=== PATIENT | female | born 1940 | race Caucasian/White ===

== ENCOUNTER 2019-10-24 04:02 | Emergency (ER) | payer OTHER ==
--- OUTSIDE RECORDS SUMMARY | 2019-10-24 04:04 | XMS REPORT | Clinical Summary ---
:1940 Author Organization [facility] Address [address] [place] [address] Care Team Providers Name Role Phone Pcp Primary Care Provider Unavailable Allergies Not on File Medications Not on file Active Problems Not on file Social History Tobacco Use Types Packs/Day Years Used Date Never Assessed Sex Assigned at Date Recorded Not on file Job Start Date Occupation Industry Not on file Not on file Not on file Travel History Travel Start Travel End No recent travel history available. Last Filed Vital Signs Not on file Plan of Treatment Not on file Results Not on fileafter 10/23/2018 Insurance Payer Benefit Plan / Group Subscriber ID Type Phone A ddress MEDICARE MEDICARE A B xxxxxxxxxx Medicare
--- OUTSIDE RECORDS SUMMARY | 2019-10-24 04:04 | XMS REPORT | Continuity of Care Document ---
:1940 Author Organization [facility] t Address [address] [place] [address] Care Team Providers Name Role Phone Unavailable Unavailable Unavailable Problems This patient has no known problems. Allergies, Adverse Reactions, Alerts This patient has no known allergies or adverse reactions. Medications This patient has no known medications. Procedures This patient has no known procedures. Results Test Description Test Time Test Comments Results Result [facility] e Comments CT, LUNG SCREENING 2017-10-05 FINAL REPORT PATIENT 16:59:00 ID: [id number] CT of the Chest dated 10/05/2017 COMPARISON: October 18, 2016 CLINICAL INFORMATION: PERSONAL HISTORY OF TOBACCO USE Comment: Axial images of the chest were obtained from thoracic inlet to the upper abdomen without intravenous contrast. This exam was performed according to our departmental dose-optimization program, which includes automated exposure control, adjustment of the mA and/or kV according to patient size and/or use of interactive reconstruction technique. FINDINGS:Lungs: Normal. No edema or consolidation. Dependent atelectasis versus scarring is noted in both lung bases. Pleura: No pleural effusion or pneumothorax. No calcified or noncalcified pleural plaques. Heart: Heart is normal size. No large pericardial effusion. Trace fluid in the superior aortic pericardial recess. Great vessels: Thoracic aorta and central pulmonary arteries are normal caliber. Lymph Nodes: No enlarged thoracic lymph nodes. No mediastinal mass. Esophagus: No thickening or dilation. Upper Abdomen: The visualized upper abdominal organs are unremarkable. Prior cholecystectomy. Osseous Structures: No suspicious osseous abnormalities. Impression: Stable interval examination of the chest. Lung-RADS category 1. Recommend routine surveillance with low-dose CT of the chest in one year. Signed: Ml Burns Verified Date/Time: 10/05/2017 16:59:08 Reading Location: [facility] C013Y CT Body Reading Room
[2019-10-24] MEDS ORDERED: NA CHLORIDE 0.9% 1,000 ML ONE (04:49)
[2019-10-24] MEDS ORDERED: ONDANSETRON 4 MG/2 ML VIAL ONE (04:49)
[2019-10-24 04:59] LABS: Absolute Lymphocytes (CBC) 0.6 K/uL (0.7-4.9); Basophils % 0.3 % (0-1.3); Hematocrit 41.3 % (36.0-45.0); Lymphocytes % 6.7 % (15.3-44.8); MPV 9.4 fL (7.6-11.3); RBC Red Blood Cell Count 4.52 M/uL (3.86-4.86)
[2019-10-24 05:15] LABS: ALT/SGPT 31 U/L (12-78); AST/SGOT 35 U/L (15-37); BUN Blood Urea Nitrogen 18 mg/dL (7-18); Bicarbonate 21 mmol/L (21-32); Glucose Level 118 mg/dL (74-106); Potassium 3.7 mmol/L (3.5-5.1); Sodium Level 143 mmol/L (136-145)
[2019-10-24 05:16] LABS: Albumin 3.6 g/dL (3.4-5.0); Alkaline Phosphatase 97 U/L (45-117); Bilirubin Direct < 0.1 mg/dL (0-0.2); Bilirubin Total 0.4 mg/dL (0.2-1.0); Lipase 222 U/L (73-393); Magnesium 1.8 mg/dL (1.8-2.4); NT PRO-BNP 179 pg/mL (<450); Protein, Total 6.8 g/dL (6.4-8.2); Troponin (Emerg Dept Use Only) < 0.02 ng/mL (0.0-0.045)
--- NOTE | 2019-10-24 05:49 | EDPHYS ---
Physician Documentation [facility] Name: Dahiana Holder Age: 79 yrs Sex: Female : 1940 Arrival Date: 10/24/2019 Time: 04:04 Bed 20 Private MD: JOSÉ MIGUEL Physician Riccardo Darling HPI: 10/23 04:19 This 79 yrs old Female presents to ER via Unassigned with complaints of jess Vomiting. 04:19 The patient presents to the emergency department with nausea, vomiting, diarrhea, that jess is continuous. Onset: The symptoms/episode began/occurred last night. Possible causes: unknown. The symptoms are aggravated by nothing. The symptoms are alleviated by nothing. Associated signs and symptoms: The patient has no apparent associated signs or symptoms. Severity of symptoms: At their worst the symptoms were mild moderate in the emergency department the symptoms are unchanged. The patient has experienced similar episodes in the past, a few times. Historical: - Allergies: 04:23 No Known Allergies; - Home Meds: 04:58 aspirin 81 mg Oral chew 1 tab once daily [Active]; oxybutynin chloride 5 mg Oral tr24 1 wh tab once daily [Active]; carvedilol oral oral 1 tab 2 times per day [Active]; magnesium oxide 500 mg Oral cap 500 mg daily [Active]; allopurinol 100 mg Oral tab 1 tab once daily [Active]; alprazolam 0.5 mg Oral Tb24 1 tab as needed [Active]; desvenlafaxine 100 mg oral Tb24 1 tab once daily [Active]; sertraline 25 mg oral tab 1 tab once daily [Active]; trazodone 50 mg oral tab .5 tab nightly [Active]; omeprazole 20 mg Oral cpDR 1 cap once daily [Active]; Ventolin Rotahaler/Rotacaps 2 puff Inhl every 4 hours [Active]; - PMHx: 04:23 Anxiety; Hypertension; GERD; Depression; 04:58 COPD; - PSHx: 04:23 Hysterectomy; Knee surgery; Appendectomy; Cholecystectomy; - Immunization history:: Adult Immunizations unknown. - Social history:: Smoking status: Patient reports the use of cigarette tobacco products, smokes one-half pack cigarettes per day. - Family history:: not pertinent. ROS: 04:20 Constitutional: Negative for fever, chills, and weight loss, Eyes: Negative for injury, jess pain, redness, and discharge, ENT: Negative for injury, pain, and discharge, Neck: Negative for injury, pain, and swelling, Cardiovascular: Negative for chest pain, palpitations, and edema, Respiratory: Negative for shortness of breath, cough, wheezing, and pleuritic chest pain, Back: Negative for injury and pain, : Negative for injury, bleeding, discharge, and swelling, MS/Extremity: Negative for injury and deformity, Skin: Negative for injury, rash, and discoloration, Neuro: Negative for headache, weakness, numbness, tingling, and seizure, Psych: Negative for depression, anxiety, suicide ideation, homicidal ideation, and hallucinations, Allergy/Immunology: Negative for hives, rash, and allergies, Endocrine: Negative for neck swelling, polydipsia, polyuria, polyphagia, and marked weight changes. 04:20 Abdomen/GI: Positive for nausea and vomiting, diarrhea. Exam: 04:20 Constitutional: This is a well developed, well nourished patient who is awake, alert, jess and in no acute distress. Head/Face: Normocephalic, atraumatic. Eyes: Pupils equal round and reactive to light, extra-ocular motions intact. Lids and lashes normal. Conjunctiva and sclera are non-icteric and not injected. Cornea within normal limits. Periorbital areas with no swelling, redness, or edema. ENT: Nares patent. No nasal discharge, no septal abnormalities noted. Tympanic membranes are normal and external auditory canals are clear. Oropharynx with no redness, swelling, or masses, exudates, or evidence of obstruction, uvula midline. Mucous membranes moist. Neck: Trachea midline, no thyromegaly or masses palpated, and no cervical lymphadenopathy. Supple, full range of motion without nuchal rigidity, or vertebral point tenderness. No Meningismus. Chest/axilla: Normal chest wall appearance and motion. Nontender with no deformity. No lesions are appreciated. Cardiovascular: Regular rate and rhythm with a normal S1 and S2. No gallops, murmurs, or rubs. Normal PMI, no JVD. No pulse deficits. Respiratory: Lungs have equal breath sounds bilaterally, clear to auscultation and percussion. No rales, rhonchi or wheezes noted. No increased work of breathing, no retractions or nasal flaring. Back: No spinal tenderness. No costovertebral tenderness. Full range of motion. Female : Normal external genitalia. Skin: Warm, dry with normal turgor. Normal color with no rashes, no lesions, and no evidence of cellulitis. MS/ Extremity: Pulses equal, no cyanosis. Neurovascular intact. Full, normal range of motion. Neuro: Awake and alert, GCS 15, oriented to person, place, time, and situation. Cranial nerves II-XII grossly intact. Motor strength 5/5 in all extremities. Sensory grossly intact. Cerebellar exam normal. Normal gait. Psych: Awake, alert, with orientation to person, place and time. Behavior, mood, and affect are within normal limits. 04:20 Abdomen/GI: Inspection: abdomen appears normal, Bowel sounds: normal, Palpation: nontender, in all quadrants, Liver: no appreciated palpable abnormalities, Hernia: not appreciated. 04:53 ECG was reviewed by the Attending Physician. [facility] Vital Signs: 04:19 BP 140 / 74; Pulse 97; Resp 18; Temp 99.2; Pulse Ox 94% on R/A; Weight 86.18 kg; Height wh 5 ft. 4 in. (162.56 cm); 06:00 BP 144 / 90; Pulse 91; Resp 18; Pulse Ox 97% on R/A; wh 04:19 Body Mass Index 32.61 (86.18 kg, 162.56 cm) MDM: 04:08 Patient medically screened. [facility] 04:22 Data reviewed: vital signs, nurses notes, lab test result(s), EKG, radiologic studies, [facility] plain films. 04:23 Differential diagnosis: Nonspecific abd pain, gastritis, viral gastroenteritis, jess gastroenteritis. Data interpreted: radiation monitor: rate is 97 beats/min, Pulse oximetry: on room air is 94 %. Test interpretation: by ED physician or midlevel provider: plain radiologic studies. Counseling: I had a detailed discussion with the patient and/or guardian regarding: the historical points, exam findings, and any diagnostic results supporting the discharge/admit diagnosis, lab results, radiology results. Medication response: Zofran markedly relieved the patient's nausea. 05:45 Differential Diagnosis sepsis, gastroenteritis. ED course: pt feeling much better, jess tolerating po, will follow up and return to the er if symptoms increase or persist. 10/23 04:18 Order name: Basic Metabolic Panel; Complete Time: 05:39 [facility] 10/23 04:18 Order name: CBC with Diff; Complete Time: 05:39 [facility] 10/23 04:18 Order name: LFT's; Complete Time: 05:39 [facility] 10/23 04:18 Order name: Magnesium; Complete Time: 05:39 [facility] 10/23 04:18 Order name: NT PRO-BNP; Complete Time: 05:39 [facility] 10/23 04:18 Order name: Troponin (emerg Dept Use Only); Complete Time: 05:39 [facility] 10/23 04:18 Order name: XRAY Chest (1 view) [facility] 10/23 04:18 Order name: Lipase; Complete Time: 05:39 [facility] 10/23 05:16 Order name: Urine Dipstick--Ancillary (enter results) 10/23 04:18 Order name: EKG; Complete Time: 04:20 [facility] 10/23 04:18 Order name: Cardiac monitoring; Complete Time: 04:53 [facility] 10/23 04:18 Order name: EKG - Nurse/Tech; Complete Time: 04:53 [facility] 10/23 04:18 Order name: IV Saline Lock; Complete Time: 04:53 [facility] 10/23 04:18 Order name: Labs collected and sent; Complete Time: 04:53 [facility] 10/23 04:18 Order name: O2 Per Protocol; Complete Time: 04:53 [facility] 10/23 04:18 Order name: O2 Sat Monitoring; Complete Time: 04:53 [facility] 10/23 04:18 Order name: Urine Dipstick-Ancillary (obtain specimen); Complete Time: 04:53 [facility] 10/23 05:47 Order name: PO challenge; Complete Time: 05:49 [facility] EC:53 Rate is 96 beats/min. Rhythm is regular. QRS [place] is Normal. AL interval is normal. QRS jess interval is normal. QT interval is normal. No Q waves. T waves are Normal. No ST changes noted. Clinical impression: NSR w/ Non-specific ST/T Changes and No evidence of ischemia. Interpreted by me. Reviewed by me. Administered Medications: 04:45 Drug: NS 0.9% 500 ml Route: IV; Rate: bolus; Site: right antecubital; 05:13 Follow up: Response: No adverse reaction; IV Status: Completed infusion 04:47 Drug: Zofran (Ondansetron) 4 mg Route: IVP; Site: right antecubital; 05:13 Follow up: Response: No adverse reaction; Nausea is decreased 05:13 Drug: NS 0.9% 1000 ml Route: IV; Rate: 125 ml/hr; Site: right antecubital; 06:00 Follow up: Response: No adverse reaction; IV Status: Order to discontinue infusion 05:50 Drug: NS 0.9% 500 ml Route: IV; Rate: bolus; Site: right antecubital; 06:18 Follow up: Response: No adverse reaction; IV Status: Completed infusion Disposition: 10/24/19 05:48 Discharged to Home. Impression: Vomiting, Diarrhea, unspecified, Weakness - improved. - Condition is Stable. - Discharge Instructions: Food Choices to Help Relieve Diarrhea, Adult, Diarrhea, Adult, Nausea and Vomiting, Adult, Weakness, Fatigue, Nausea and Vomiting, Adult, Xqrh-[id number], Diarrhea, Adult, Ferp-pt-Llyr, Weakness, [id number]-ww-Lfnt. - Prescriptions for Zofran 4 mg Oral Tablet - take 1 tablet by ORAL route every 12 hours As needed; 20 tablet. - Medication Reconciliation Form, Thank You Letter, Antibiotic Education, Prescription Opioid Use form. - Follow up: Private Physician; When: 2 - 3 days; Reason: Recheck today's complaints, Continuance of care, Re-evaluation by your physician. - Problem is new. - Symptoms have improved. Signatures: Dispatcher [employer] Riccardo Delaney MD MD cha [place], Winsy Corrections: (The following items were deleted from the chart) 06:20 05:48 10/24/2019 05:48 Discharged to Home. Impression: Vomiting; Diarrhea, unspecified; Weakness - improved. Condition is Stable. Forms are Medication Reconciliation Form, Thank You Letter, Antibiotic Education, Prescription Opioid Use. Follow up: Private Physician; When: 2 - 3 days; Reason: Recheck today's complaints, Continuance of care, Re-evaluation by your physician. Problem is new. Symptoms have improved. jess
--- NOTE | 2019-10-24 05:49 | ER ---
Nurse's Notes [facility] Name: Dahiana Holder Age: 79 yrs Sex: Female : 1940 Arrival Date: 10/24/2019 Time: 04:04 Bed 20 Private MD: Diagnosis: Vomiting;Diarrhea, unspecified;Weakness-improved Presentation: 10/23 04:19 Chief complaint: Patient states: C/O vomiting and nausea that started 10:00 pm last night. Pt also stated episode of diarrhea in the day, Pt denies fever. Coronavirus screen: Proceed with normal triage. Patient denies a cough. Patient denies shortness of breath or difficulty breathing. Patient denies measured and/or subjective temperature greater than 100.4F prior to today's visit. Patient denies travel on a cruise ship or to a country the [facility] currently lists as an affected area. Patient denies contact with known and/or suspected case of COVID-19. Ebola Screen: Patient negative for fever greater than or equal to 101.5 degrees Fahrenheit, and additional compatible Ebola Virus Disease symptoms Patient denies exposure to infectious person. Initial Sepsis Screen: Does the patient meet any 2 criteria? HR > 90 bpm. Does the patient have a suspected source of infection? No. Patient's initial sepsis screen is negative. Risk Assessment: Do you want to hurt yourself or someone else? Patient reports no desire to harm self or others. Onset of symptoms was October 24, 2019. 04:19 Method Of Arrival: Wheelchair 04:19 Acuity: KEVIN 3 Historical: - Allergies: 04:23 No Known Allergies; - Home Meds: 04:58 aspirin 81 mg Oral chew 1 tab once daily [Active]; oxybutynin chloride 5 mg Oral tr24 1 wh tab once daily [Active]; carvedilol oral oral 1 tab 2 times per day [Active]; magnesium oxide 500 mg Oral cap 500 mg daily [Active]; allopurinol 100 mg Oral tab 1 tab once daily [Active]; alprazolam 0.5 mg Oral Tb24 1 tab as needed [Active]; desvenlafaxine 100 mg oral Tb24 1 tab once daily [Active]; sertraline 25 mg oral tab 1 tab once daily [Active]; trazodone 50 mg oral tab .5 tab nightly [Active]; omeprazole 20 mg Oral cpDR 1 cap once daily [Active]; Ventolin Rotahaler/Rotacaps 2 puff Inhl every 4 hours [Active]; - PMHx: 04:23 Anxiety; Hypertension; GERD; Depression; 04:58 COPD; wh - PSHx: 04:23 Hysterectomy; Knee surgery; Appendectomy; Cholecystectomy; wh - Immunization history:: Adult Immunizations unknown. - Social history:: Smoking status: Patient reports the use of cigarette tobacco products, smokes one-half pack cigarettes per day. - Family history:: not pertinent. Screenin:23 Abuse screen: Denies threats or abuse. Denies injuries from another. Nutritional wh screening: No deficits noted. Tuberculosis screening: No symptoms or risk factors identified. Fall Risk None identified. Assessment: 04:24 General: Appears in no apparent distress. uncomfortable, Behavior is calm, cooperative, wh appropriate for age. Pain: Complains of pain in epigastric area Pain does not radiate. Pain currently is 4 out of 10 on a pain scale. Neuro: Level of Consciousness is awake, alert, obeys commands, Oriented to person, place, time, situation, Appropriate for age. Cardiovascular: Heart tones S1 S2. Respiratory: Airway is patent Respiratory effort is even, unlabored, Respiratory pattern is regular, symmetrical, Breath sounds are clear bilaterally. GI: Abdomen is flat, non-distended, Bowel sounds present X 4 quads. Abd is soft and non tender X 4 quads. Reports nausea, vomiting. : No signs and/or symptoms were reported regarding the genitourinary system. EENT: No signs and/or symptoms were reported regarding the EENT system. Derm: Skin is intact, is healthy with good turgor, Skin is pink, warm \T\ dry. normal. Musculoskeletal: Circulation, motion, and sensation intact. 06:17 Reassessment: Patient appears in no apparent distress at this time. No changes from previously documented assessment. Patient and/or family updated on plan of care and expected duration. Pain level reassessed. Patient is alert, oriented x 3, equal unlabored respirations, skin warm/dry/pink. Patient states feeling better. Patient states symptoms have improved. Vital Signs: 04:19 BP 140 / 74; Pulse 97; Resp 18; Temp 99.2; Pulse Ox 94% on R/A; Weight 86.18 kg; Height 5 ft. 4 in. (162.56 cm); 06:00 BP 144 / 90; Pulse 91; Resp 18; Pulse Ox 97% on R/A; 04:19 Body Mass Index 32.61 (86.18 kg, 162.56 cm) ED Course: 04:04 Patient arrived in ED. ds1 04:04 Lore Jang is Primary Nurse. 04:08 Riccardo Darling MD is Attending Physician. [facility] 04:22 Triage completed. 04:25 Patient has correct armband on for positive identification. Placed in gown. Bed in low wh position. Call light in reach. Side rails up X 1. hall monitor on. Pulse ox on. NIBP on. 04:26 Arm band placed on right wrist. 04:35 Inserted saline lock: 20 gauge in right antecubital area, using aseptic technique. 05:09 XRAY Chest (1 view) In Process Unspecified. EDMS 06:19 No provider procedures requiring assistance completed. IV discontinued, intact, bleeding controlled, No redness/swelling at site. Administered Medications: 04:45 Drug: NS 0.9% 500 ml Route: IV; Rate: bolus; Site: right antecubital; 05:13 Follow up: Response: No adverse reaction; IV Status: Completed infusion 04:47 Drug: Zofran (Ondansetron) 4 mg Route: IVP; Site: right antecubital; 05:13 Follow up: Response: No adverse reaction; Nausea is decreased 05:13 Drug: NS 0.9% 1000 ml Route: IV; Rate: 125 ml/hr; Site: right antecubital; 06:00 Follow up: Response: No adverse reaction; IV Status: Order to discontinue infusion 05:50 Drug: NS 0.9% 500 ml Route: IV; Rate: bolus; Site: right antecubital; 06:18 Follow up: Response: No adverse reaction; IV Status: Completed infusion Outcome: 05:48 Discharge ordered by . [facility] 06:19 Discharged to home via wheelchair, with family. 06:19 Condition: stable 06:19 Discharge instructions given to patient, family, Instructed on discharge instructions, follow up and referral plans. medication usage, POC Demonstrated understanding of instructions, follow-up care, medications, POC[ Prescriptions given X 1. 06:20 Patient left the ED. Signatures: Dispatcher [employer] EDRiccardo Seals MD MD cha [place], Demi ds1 Lore Jang
[2019-10-24 05:55] LABS: Urine Blood NEGATIVE (NEG); Urine Glucose NEGATIVE (NEG); Urine Protein 2+ (NEG); Urine Specific Gravity >1.030 (1.005-1.030); Urine pH 5.5 (5.0-7.0)
[2019-10-24 06:27] VITALS: TEMP 99.2
[2019-10-24 06:29] VITALS: BP 144/90; O2SAT 97
--- NOTE | 2019-10-24 07:32 | RAD REPORT ---
EXAM DESCRIPTION: Jessika Single View10/24/2019 5:09 am CLINICAL HISTORY: cough COMPARISON: 2014 FINDINGS: The lungs appear clear of acute infiltrate. The heart is normal size IMPRESSION: No acute abnormalities displayed
--- NOTE | 2019-10-24 09:54 | EKG ---
Test Date: 2019-10-24 Test Time: 04:33:53 Scientific Recruiter: JEAN MEASUREMENT RESULTS: Intervals: Rate: 96 CA: 178 QRSD: 92 QT: 366 QTc: 462 [place]: P: 61 CA: 178 QRS: -26 T: 52 INTERPRETIVE STATEMENTS: Normal sinus rhythm Possible Anterior infarct, age undetermined Abnormal ECG Compared to ECG 05/17/2019 11:45:00 Myocardial infarct finding now present Electronically Signed On 10-24-19 09:53:46 CDT by Seng Aguilar
== END 2019-10-24 06:20 | disposition home or self-care (01) ==
LOC: ER 04:02
DX: R11.2 Nausea with vomiting, unspecified (principal); R19.7 Diarrhea, unspecified; F17.210 Nicotine dependence, cigarettes, uncomplicated; K21.9 Gastro-esophageal reflux disease without esophagitis; J44.9 Chronic obstructive pulmonary disease, unspecified; I10 Essential (primary) hypertension; F41.8 Other specified anxiety disorders
CPT/HCPCS: 96361; 93005; 85025; 80048; 36415; 83735; 80076; 81003; 84484; 83690; 83880; 71045; 96374; 99284; J7030; J2405

== ENCOUNTER 2022-09-21 06:15 | Day surgery (SDC) | payer OTHER ==
[2022-09-21] MEDS ORDERED: Ringers Lactate 1,000 ML IV ONE (07:01)
[2022-09-21] MEDS ORDERED: propofoL 200 MG/20 ML VIAL IV ONE (07:58)
[2022-09-21] MEDS ORDERED: LIDOCAINE 1% MPF 5 ML VIAL ONE (07:58)
[2022-09-21 10:31] VITALS: O2SAT 96
[2022-09-21 10:32] VITALS: BP 147/40; TEMP 97.8
== END 2022-09-21 09:15 | disposition home or self-care (01) ==
LOC: OR 06:15
PROVIDERS: ATTEND Internal Medicine Gastroenterology
PROC: 0DB68ZX Excision of Stomach, Via Natural or Artificial Opening Endoscopic, Diagnostic (ICD-10-PCS; principal; 2022-09-21 07:30)
DX: K29.50 Unspecified chronic gastritis without bleeding (principal); R10.13 Epigastric pain; R11.2 Nausea with vomiting, unspecified; J44.9 Chronic obstructive pulmonary disease, unspecified; K21.9 Gastro-esophageal reflux disease without esophagitis; I10 Essential (primary) hypertension
CPT/HCPCS: 88312; 88305; 43239; J2704; J2001; J7120

== ENCOUNTER 2023-07-13 05:57 | Day surgery (SDC) | payer OTHER ==
[2023-07-10 13:24] LABS: Hematocrit 38.1 % (36.0-45.0); Lymphocytes % 36.7 % (15.3-44.8); MCV 88.9 fL (80-100); MPV 8.6 fL (7.6-11.3); Platelets 210 thou/uL (152-406); RBC Red Blood Cell Count 4.28 M/uL (3.86-4.86)
[2023-07-10 13:27] LABS: Potassium 4.3 mEq/L (3.5-5.1)
--- NOTE | 2023-07-11 16:38 | EKG ---
Test Date: 2023-07-10 Test Time: 13:56:34 Unhairing Machine Operator: NOHEMI MEASUREMENT RESULTS: Intervals: Rate: 57 ME: 184 QRSD: 96 QT: 452 QTc: 439 [place]: P: 38 ME: 184 QRS: -16 T: -16 INTERPRETIVE STATEMENTS: Sinus bradycardia Moderate voltage criteria for LVH, may be normal variant Inferior infarct, age undetermined Abnormal ECG Compared to ECG 11/11/2020 12:23:53 Left ventricular hypertrophy now present Myocardial infarct finding now present Sinus rhythm no longer present ST (T wave) deviation no longer present Electronically Signed On 07-11-23 16:37:32 SHEET TURNER by Angel Ribeiro
[2023-07-13] MEDS ORDERED: CEFAZOLIN SODIUM 1 GM/VIAL ONE (06:37)
[2023-07-13] MEDS: Ringers Lactate 1,000 ML IV ONE (06:50)
[2023-07-13] MEDS ORDERED: LIDOCAINE 1% MPF 5 ML VIAL ONE (07:02)
[2023-07-13] MEDS ORDERED: FENTANYL CITR 100 MCG/2 ML ONE (07:03)
[2023-07-13] MEDS ORDERED: propofoL 200 MG/20 ML VIAL IV ONE (07:03)
[2023-07-13] MEDS ORDERED: ROCURONIUM 50 MG/5 ML VIAL IV ONE (07:03)
[2023-07-13] MEDS: CEFAZOLIN SODIUM 2 GM/VIAL ONE (07:15)
[2023-07-13] MEDS ORDERED: dexAMETHasone 4 MG/ML VIAL ONE (07:37)
[2023-07-13] MEDS ORDERED: ONDANSETRON 4 MG/2 ML VIAL ONE (07:37)
[2023-07-13] MEDS: BUPIVACAINE 0.25% PF 30 ML VIAL ONE (07:50)
[2023-07-13] MEDS ORDERED: IBUPROFEN 200 MG TAB PO PRN (08:36)
--- NOTE | 2023-07-13 08:47 | P.BOP ---
Preoperative diagnosis: Fecal Incontinence, Urge Incontinence Postoperative diagnosis: same Primary procedure: Stage 1 and 2 Interstim w/ fluoro and implantation of device Missile Tracking Technician: NONE,NONE Estimated blood loss: min Specimen: none Findings: Left S3, Left buttock, 0: only toe, all others: toe/mady, strongest 1,2 Anesthesia: General Complications: None Transferred to: Recovery Room Condition: Good
[2023-07-13 10:23] VITALS: BP 120/100; TEMP 96.5; O2SAT 99
--- NOTE | 2023-07-13 14:11 | OP ---
Date of Procedure: 07/13/2023 Surgeon: Susan Heredia MD Sample Dye Mixer: None. Preoperative Diagnoses: Fecal incontinence and urge incontinence. Postoperative Diagnoses: Fecal incontinence and urge incontinence. Procedures: Stage 1 and 2 InterStim (complete InterStim) system implantation with incision and impla ntation of quadripolar tined leads into the S3 foramina under fluoroscopic guidance for needle placem ent, subcutaneous implantation of sacral nerve neurostimulator and electronic analysis and programmin g. Specimens: No specimens. Drains: No drains. Estimated Blood Loss: Minimal. Findings: Left S3 was used. Left buttock pocket was created. Lead 0 only had blunt toe response. All the others had both toes and Bob and the strongest were leads 1 and 2. Anesthesia: General. Complications: No complications. Condition: Stable. Disposition: Transferred to the recovery room in stable condition. Indications: The patient had refractor fecal incontinence and urge incontinence, not managed via any first and second line therapies. She tried the office percutaneous nerve evaluation, had great resp onse, more than 75% improvement on both. She was consented for a full InterStim implant and brought to the hospital. Description Of Procedure: After the patient was properly identified, preoperative consents were sign ed. She was taken back to the OR. General anesthesia was given on the bed and then she was placed i n a prone position by the OR protocol. Pillows were placed under the lower abdomen to flatten the sa dennis and under shins to allow the toes to dangle freely. The patient was prepped and draped in a joellen rile fashion using Betadine solution. The C-arm was draped and moved into AP position to provide flu oroscopic mapping of the sacral region and to the lateral position to image the area from the sacral promontory to the coccyx. Local injection after surface markings were made 9 cm proximal to the coccyx and the midline was amilcar ed and 2 cm lateral to the midline marked at 9, 10, and 11 cm. These were injected with the local li docaine with epi. A foramen needle was introduced approximately 2 cm above the sciatic notch, also corresponding on the 11 cm amilcar, 2 cm lateral to the midline. Then, feeling for the foraminal margins until the S3 was i dentified. This was penetrated. The depth of the 4 mm needle was then confirmed and adjusted fluoro scopically. Proper needle position was confirmed by patient identification and location of the perin eal bellowing in plantar flexion of the great toe using the external test stimulator. Foramen needle stylet was removed. Bidirectional guide was placed and confirmed fluoroscopically. T he foramen needle was removed. An incision was made peripherally to the directional guide through th e fascial layer. The dilator was placed over the guide and then directed into the foramen to ensure the radiopaque marker of the lead introducer did not extend beyond the anterior edge of the sacrum. Dilator was then unlocked and removed along with a bidirectional guide. The lead was then placed thr ough the introducer sheath to the first white line. The position was checked fluoroscopically and th e lead was then further advanced until 3 electrodes were visible below the sacrum. Each electrode wa s tested for location of the Bob and plantar flexion. Leads 1 and 2 had the strongest response o f Bob and toes. Lead 0 had only a toe response and then lead 3 had both toes and Bob, but mi lder than leads 1 and 2. After satisfactory positioning was confirmed, the introducer sheath was retracted under direct fluoro and this deployed the tined leads into the presacral tissue. The further incision was made in subcutaneous tissue, posterior to the iliac crest and lateral to the sacrum with a 15 blade. Then, dissected with cautery until the gluteal fascia was identified and he mostasis was secured. A sufficient pocket was created for the neurostimulator. The tunneling tool a nd straw was placed from the lead exit site subcutaneously to the incised pocket site. The tunneling tool was removed and the lead was fed through the straw and pulled out the pocket. The lead was the n cleansed off bodily fluids and dried. The pocket was irrigated with sterile water and antibiotic s olution. The lead was then inserted into the neurostimulator and the metal bands were aligned with t he blue tip clearly visible in the distal portion of the stimulator header. The single set screw was tightened with the hex wrench. The neurostimulator was then placed in the subcutaneous pocket and etched identification side upwards and excessive lead counter-clockwise rotated around the neurostimulator. The programming head was t hen placed over the implanted neurostimulator in a sterile cover to ensure adequate lead connection a nd the parameters were within normal limits. Impedances were confirmed to be within normal limits. Wounds were irrigated and subcutaneous closure with interrupted 3-0 Vicryl and running 5-0 Monocryl f or the skin. Same stitch interrupted for the lead site. Dermabond and strips were placed. EBL was minimal. The patient was transferred to the recovery room in stable condition. Using the clinician javascript programmer, the generator was programmed and documented in the chart. Her family was debriefed about her procedures. She will follow up in 3 weeks postop with a log. SHELLY/ARMAAN Voice ID: [id number] Report ID: [id number]
--- NOTE | 2023-07-13 17:11 | RAD REPORT ---
EXAM DESCRIPTION: RAD - Fluoroscopy <1 Hour - 07/13/2023 1:20 pm CLINICAL HISTORY: SACRAL NEURO MOD COMPARISON: None available. FINDINGS: 8 images were sent to PACS, documenting hardware positions during sacral neuro modulator p lacement procedure. No radiologist was available for the procedure, nor will any image interpretation he provided. Please refer to the procedural report for additional details. Fluoroscopy time: 1 Minutes. IMPRESSION: Documentation of fluoroscopy utilization as above.
== END 2023-07-13 10:10 | disposition home or self-care (01) ==
LOC: OR 05:57
PROVIDERS: ADMIT Obstetrics & Gynecology; ATTEND Obstetrics & Gynecology
PROC: 0JH73BZ Insertion of Single Array Stimulator Generator into Back Subcutaneous Tissue and Fascia, Percutaneous Approach (ICD-10-PCS; 2023-07-13)
PROC: 01HY3MZ Insertion of Neurostimulator Lead into Peripheral Nerve, Percutaneous Approach (ICD-10-PCS; principal; 2023-07-13 07:00)
DX: R15.9 Full incontinence of feces (principal); R15.2 Fecal urgency; R39.14 Feeling of incomplete bladder emptying; N39.46 Mixed incontinence; F41.9 Anxiety disorder, unspecified; F03.90 Unspecified dementia, unspecified severity, without behavioral disturbance, psychotic disturbance, mood disturbance, and anxiety; F32.A Depression, unspecified; I10 Essential (primary) hypertension
CPT/HCPCS: 36415; 76000; 80048; 85025; 93005; C1767; C1778; J0690; J1100; J2001; J2405; J2704; J3010; J7120